=== PATIENT | female | born 1985 | race Caucasian/White ===

== ENCOUNTER → 2024-06-25 17:06 | Outpatient (CLI) | payer OTHER, SELFPAY ==
--- NOTE | 2024-06-25 17:13 | DI.RAD.S_ITS ---
PROCEDURE: XR KNEE RT 3V INDICATIONS: PAIN TECHNIQUE: 3 views of the knee were acquired. COMPARISON: None. FINDINGS: Bones: No fractures or dislocations. No suspicious bony lesions. Soft tissues: Mild joint effusion. No suspicious soft tissue calcifications. IMPRESSION: No visualized acute fracture or dislocation. However, if clinical concern and/or pain persist, short interval imaging followup in 7-10 days is recommended, as occult injury cannot be definitively excluded. Dictated by: Andie Cortés M.D. on 06/26/2024 at 9:18 Approved by: Andie Cortés M.D. on 06/26/2024 at 9:18
== END ==
PROVIDERS: PCP Registered Nurse; Referring Provider Registered Nurse; Visit Provider Registered Nurse
DX: M25.561 Pain in right knee (principal); M25.461 Effusion, right knee
CPT/HCPCS: 73562